=== PATIENT | female | born 1980 | race Two or more races ===

== ENCOUNTER 2016-12-21 13:38 | Emergency (ER) | payer OTHER, SELFPAY ==
[~2016-12-21] VITALS: Ht 154.9 cm; Wt 76.2 kg
[2016-12-21 13:39] VITALS: BP 130/80
[2016-12-21] MEDS ORDERED: PLEASE ENTER ALLERGIES MC SCH ×2 (14:00)
[2016-12-21] MEDS ORDERED: FAMOTIDINE 20 MG TABLET PO ONE (14:00)
[2016-12-21] MEDS ORDERED: FAMOTIDINE 20 MG TABLET ONE (14:25)
== END 2016-12-21 15:14 | disposition home or self-care (01) ==
LOC: ED 15:05
DX: L50.9 Urticaria, unspecified (principal); I10 Essential (primary) hypertension
CPT/HCPCS: 99284; J7512; Q0177

== ENCOUNTER 2016-12-22 22:32 | Emergency (ER) | payer OTHER ==
[~2016-12-22] VITALS: Ht 154.9 cm; Wt 76.2 kg
[2016-12-23 00:06] VITALS: BP 134/78
== END 2016-12-23 00:08 | disposition home or self-care (01) ==
LOC: ED 23:28
DX: L23.9 Allergic contact dermatitis, unspecified cause (principal); I10 Essential (primary) hypertension
CPT/HCPCS: 93005; 99283

== ENCOUNTER 2018-11-19 15:17 | Emergency (ER) | payer BC, OTHER ==
[~2018-11-19] VITALS: Ht 154.9 cm; Wt 81.6 kg
[2018-11-19 15:18] VITALS: BP 139/81
[2018-11-19 15:43] LABS: BASOPHILS # (AUTO) 0.02 x10^3/uL (0-0.1); BASOPHILS % (AUTO) 0 % (0-1); EOSINOPHILS # (AUTO) 0.19 x10^3/uL (0-0.4); EOSINOPHILS % (AUTO) 2 % (1-7); LYMPHOCYTES # (AUTO) 3.17 x10^3/uL (1-3.4); LYMPHOCYTES % (AUTO) 37 % (22-44); MD NO; MEAN CORPUSCULAR HEMOGLOBIN 29.7 pg (27.0-34.8); MEAN CORPUSCULAR HGB CONC 33.4 g/dL (32.4-35.8); MEAN PLATELET VOLUME 8.7 fL (7.4-10.4); MONOCYTES # (AUTO) 0.43 x10^3/uL (0.2-0.8); MONOCYTES % (AUTO) 5 % (2-9); NEUTROPHILS # (AUTO) 4.71 x10^3/uL (1.8-6.8); NEUTROPHILS % (AUTO) 55 % (42-75); PLATELET COUNT 268 x10^3/uL (130-400); RED BLOOD COUNT 5.32 x10^6/uL (3.82-5.3); RED CELL DISTRIBUTION WIDTH 13.4 % (9.6-15.2)
[2018-11-19 15:47] LABS: ALANINE AMINOTRANSFERASE 51 U/L (12-78); ALBUMIN 3.8 g/dL (3.4-5.0); ANION GAP 4 mmol/L (5-15); CALCIUM 8.6 mg/dL (8.5-10.1); CHLORIDE 111 mmol/L (98-107); CREATININE 0.76 mg/dL (0.55-1.02)
[2018-11-19 15:50] LABS: ALKALINE PHOSPHATASE 98 U/L (45-117); BILIRUBIN,TOTAL 0.6 mg/dL (0.2-1.0); TOTAL PROTEIN 7.8 g/dL (6.4-8.2); TROPONIN I < 0.015 ng/mL (0.000-0.045)
== END 2018-11-19 17:01 ==
LOC: ED 16:55
DX: J30.2 Other seasonal allergic rhinitis (principal); R06.00 Dyspnea, unspecified; J20.9 Acute bronchitis, unspecified; I10 Essential (primary) hypertension
CPT/HCPCS: 36415; 71046; 80053; 83880; 84484; 85025; 93005; 99284

== ENCOUNTER → 2019-08-31 | Outpatient (CLI) | payer BC, OTHER | END | disposition home or self-care (01) | LOC: CFH 07:33 | PROVIDERS: ATTEND Internal Medicine Cardiovascular Disease | DX: R07.89 Other chest pain (principal); I10 Essential (primary) hypertension | CPT/HCPCS: 93306 ==